=== PATIENT | male | born 1980 | race Asian ===

== ENCOUNTER 2018-02-21 12:05 | Emergency (ER) | payer BC ==
[~2018-02-21] VITALS: Ht 170.2 cm; Wt 72.6 kg
--- NOTE | 2018-02-21 12:13 | NUR ---
Patient to ER bed 04 to gown for evaluation. Side rails up.
[2018-02-21 12:15] VITALS: BP_SYST 126
--- NOTE | 2018-02-21 12:18 | NUR ---
Patient arrived via POV, AAOx4, and ambulatory with steady but off set gait due to pain. Patient c/c of right lower leg pain. Patient states he has history of varicose veins, right leg pain, smoker, and flew from [place], [place], and pain has been present since 02/17/18. Patient notes pain to medial right lower leg. Patient denies nausea, vomiting, and diarrhea. Patient states he has been trying to wear compression socks to lessen pain. Will continue to follow up and monitor.
--- NOTE | 2018-02-21 12:20 | NUR ---
ER at bedside examining patient.
--- NOTE | 2018-02-21 12:45 | NUR ---
Patient taken to US via wheelchair, patient in stable condition. Will follow up upon arrival back to room.
[2018-02-21 13:28] LABS: EOSINOPHILS # (AUTO) 0.1 K/uL (0.0-0.4); HEMOGLOBIN 14.7 g/dL (14.0-18.0); MEAN CORPUSCULAR HEMOGLOBIN 33 pg (27-31); MEAN CORPUSCULAR HGB CONC 33 % (32-36); MEAN CORPUSCULAR VOLUME 99 fL (79.0-98.0); MONOCYTES # (AUTO) 0.6 K/uL (0.0-1.0); PLATELET COUNT (AUTO) 424 K/uL (130-430); RED BLOOD CELL COUNT(AUTO) 4.53 MIL/uL (4.2-6.2); RED CELL DISTRIBUTION WIDTH 13.2 % (9.0-15.0); WHITE BLOOD COUNT (AUTO) 5.2 K/uL (4.8-10.8)
--- NOTE | 2018-02-21 13:28 | NUR ---
Patient arrived back to room from ultrasound. Will continue to follow up.
[2018-02-21 13:38] LABS: BASOPHILS % (AUTO) 0.1 % (0.0-2.0)
[2018-02-21 13:39] LABS: CALCIUM 8.9 mg/dL (8.4-11.0); CREATININE 1.09 mg/dL (0.55-1.30); POTASSIUM 4.3 mmol/L (3.5-5.1)
[2018-02-21 13:44] LABS: LYMPHOCYTES % (AUTO) 18.6 % (20.5-51.5); NEUTROPHILS % (AUTO) 67.2 % (40.0-70.0)
[2018-02-21 13:45] LABS: ALBUMIN 3.7 g/dL (3.4-4.8); EOSINOPHILS % (AUTO) 2.2 % (0.0-4.0); MONOCYTES % (AUTO) 11.6 % (1.7-9.3); NEUTROPHILS # (AUTO) 3.5 K/uL (1.8-7.7); TOTAL BILIRUBIN 0.3 mg/dL (0.0-1.0)
[2018-02-21 13:57] VITALS: BP_SYST 126
--- NOTE | 2018-02-21 13:57 | NUR ---
Patient given written and verbal discharge instructions and verbalizes understanding. ER MD discussed with patient the results and treatment provided. Patient in stable condition. ID arm band removed. Rx of Motrin given. Patient educated on pain management and to follow up with PMD. Pain Scale 3/10. Opportunity for questions provided and answered. Medication side effect fact sheet provided.
== END 2018-02-21 13:57 | disposition home or self-care (01) ==
LOC: SED 12:05
DX: I83.811 Varicose veins of right lower extremity with pain (principal); R03.0 Elevated blood-pressure reading, without diagnosis of hypertension; Z88.1 Allergy status to other antibiotic agents
CPT/HCPCS: 36415; 80053; 85025; 85379; 93971; 99284